=== PATIENT | female | born 1985 | race Caucasian/White ===

== ENCOUNTER 2017-09-02 07:18 | Emergency (ER) ==
[2017-09-02 07:24] VITALS: BP 147/118; TEMP 98; BMI 25.8
--- NOTE | 2017-09-02 07:48 | DI ---
EXAM: LEFT HAND THREE VIEWS HISTORY: Smashed thumb in car door FINDINGS: Bone and joint structures appear normal. There is no fracture, joint dislocation, bone density abnormality or soft tissue finding. IMPRESSION: Within normal limits.
--- NOTE | 2017-09-02 07:48 | DI ---
EXAM: RIGHT WRIST THREE VIEWS HISTORY: Wrist trauma FINDINGS / IMPRESSION: There is no definite or convincing evidence of acute fracture. Joints are i ntact. No arthropathy. Soft tissues unremarkable.
--- NOTE | 2017-09-02 08:12 | ED.PDOC ---
General ED Provider: Dr. JULIA DUNNE Chief Complaint: Hand Pain/Injury Stated Complaint: RIGHT THUMB Time Seen by Physician: 07:20 Mode of Arrival: Walk-In Information Source: Patient Exam Limitations: No limitations Nursing and Triage Documentation Reviewed and Agree: Yes Reviewed sepsis parameters & appropriate labs ordered?: Yes System Inflammatory Response Syndrome: Not Applicable Sepsis Protocol: For patient's 13 years and over: Temp is 96.8 and below OR 101 and greater Pulse >90 BPM Resp >20/minute Acutely Altered Mental Status Are patient's symptoms suggestive of a new infection, such as: -Pneumonia -Skin, Soft Tissue -Endocarditis -UTI -Bone, Joint Infection -Implantable Device -Acute Abdominal Infection -Wound Infection -Meningitis -Blood Stream Catheter Infection -Unknown System Inflammatory Response Syndrome: Not Applicable Review of Systems - Review Of Systems Constitutional: Reports: No symptoms Eyes: Reports: No symptoms Ears, Nose, Mouth, Throat: Reports: No symptoms Respiratory: Reports: No symptoms Cardiac: Reports: No symptoms GI: Reports: No symptoms : Reports: No symptoms Musculoskeletal: Reports: Joint pain (THUMB LEFT SIDE ) Skin: Reports: No symptoms Neurological: Reports: No symptoms Endocrine: Reports: No symptoms Hematologic/Lymphatic: Reports: No symptoms All Other Systems: Reviewed and Negative Past Medical History - Past Medical History Previously Healthy: Yes Endocrine: Reports: None Cardiovascular: Reports: None Respiratory: Reports: None Hematological: Reports: None Gastrointestinal: Reports: None Genitourinary: Reports: None Neuro/Psych: Reports: None Musculoskeletal: Reports: None Cancer: Reports: None Last Menstrual Period: 2 WEEKS - Surgical History General Surgical History: Reports: Unknown - Family History Family History: Reports: Unknown - Social History Smoking Status: Current every day smoker, Light tobacco smoker Hx Substance Use: No Alcohol Screening: Occasionally - Immunizations Tetanus Shot up to Date: Yes Physical Exam - Physical Exam Appearance: Well-appearing, No pain distress, Well-nourished Eyes: NIDHI, EOMI, Conjunctiva clear ENT: Ears normal, Nose normal, Oropharynx normal Respiratory: Airway patent, Breath sounds clear, Breath sounds equal, Respirations nonlabored Cardiovascular: RRR, Pulses normal, No rub, No murmur GI/: Soft, Nontender, No masses, Bowel sounds normal, No Organomegaly Musculoskeletal: ROM intact (SUBUNGAL HEMATOMA LEFT THUMB) Skin: Warm, Dry, Normal color Neurological: Sensation intact, Motor intact, Reflexes intact, Cranial nerves intact, Alert, Oriented Psychiatric: Affect appropriate, Mood appropriate Interpretation - Radiology Interpretation Radiology Interpretation By: Radiologist Radiology Results: No acute changes Critical Care Note - Critical Care Note Total Time (mins): 0 Course - Course Orders, Labs, Meds: Orders Category Date Time Status HAND, RIGHT 3 VIEWS Stat RADS 09/02/17 07:25 Completed WRIST, RIGHT 3 VIEWS Stat RADS 09/02/17 07:25 Completed Vital Signs: Temp Pulse Resp BP Pulse Ox 09/02/17 07:20 98 F 105 H 20 147/118 H 97 Departure - Departure Time of Disposition: 08:12 Disposition: HOME SELF-CARE Discharge Problem: Injury of hand, Subungual hematoma of digit of hand, Hand pain Instructions: Subungual Hematoma (ED) Condition: Good Pt referred to PMD for follow-up: Yes IPMP verified?: Yes Allergies/Adverse Reactions: Allergies bupropion HCl [From Wellbutrin] Adverse Reaction (Verified 09/02/17 07:19) codeine Adverse Reaction (Verified 09/02/17 07:19) cyclobenzaprine HCl [From Flexeril] Adverse Reaction (Verified 09/02/17 07:19) sertraline HCl [From Zoloft] Adverse Reaction (Verified 09/02/17 07:19) tizanidine HCl [From Zanaflex] Adverse Reaction (Verified 09/02/17 07:19) Home Medications: Ambulatory Orders 1 [No Reported Medications] 01/26/16
== END 2017-09-02 08:20 | disposition home or self-care (01) ==
LOC: ED 07:18
DX: S60.111A Contusion of right thumb with damage to nail, initial encounter (principal); F17.210 Nicotine dependence, cigarettes, uncomplicated
CPT/HCPCS: 99282